=== PATIENT | female | born 1980 | race African-American/Black ===

== ENCOUNTER 2024-01-07 10:03 | Observation (INO) | payer OTHER ==
[2024-01-07 10:10] VITALS: RESP 18; BMI 39.7
[2024-01-07 11:31] LABS: BASO % 1.6 % (0-2.0); EOS % 1.7 % (0-4.5); HEMATOCRIT 24.2 % (32.4-45.2); HEMOGLOBIN 7.1 GM/dL (10.7-15.3); LYMPH % 14.1 % (8-40); MCH 15.2 pg (25.7-33.7); MCHC 29.4 g/dl (32.0-36.0); MEAN CELL VOLUME 51.7 fl (80-96); MEAN PLT VOLUME 8.5 fl (7.5-11.1); MONO % 8.3 % (3.8-10.2); NEUT % 74.3 % (42.8-82.8); PLATELET COUNT 394 10^3/uL (134-434); RBC 4.68 M/mm3 (3.60-5.2); RDW 21.4 % (11.6-15.6); WHITE BLOOD COUNT 6.7 K/mm3 (4.0-10.0)
[2024-01-07 11:44] LABS: INR 1.08 (0.83-1.09); PROTHROMBIN TIME (PATIENT) 12.2 SEC (9.7-13.0)
[2024-01-07 11:47] LABS: ACTIVATED PTT 29.8 SECONDS (25.2-36.5)
[2024-01-07 11:49] LABS: POTASSIUM 3.3 mmol/L (3.5-5.1)
[2024-01-07 11:51] LABS: CALCIUM 9.3 mg/dL (8.5-10.1)
[2024-01-07 11:52] LABS: ALBUMIN 3.5 g/dl (3.4-5.0); BLOOD UREA NITROGEN 11.9 mg/dL (7-18)
[2024-01-07 11:55] LABS: CREATININE 0.7 mg/dL (0.55-1.3)
[2024-01-07 11:56] LABS: TOT PROT 7.5 g/dl (6.4-8.2)
[2024-01-07 11:57] LABS: BILIRUBIN,TOTAL 0.3 mg/dL (0.2-1)
[2024-01-07] MEDS ORDERED: POTASSIUM CHLORIDE ORAL LIQUID 20 MEQ/15 ML ONE (12:25)
[2024-01-07] MEDS: POTASSIUM CHLORIDE ORAL LIQUID 20 MEQ/15 ML PO ONE (12:33)
[2024-01-07 12:40] LABS: ANISOCYTOSIS 3+; MACROCYTOSIS 0; PLATELET ESTIMATE ADEQUATE
[2024-01-07] MEDS ORDERED: ACETAMINOPHEN 325 MG TABLET (FP) PO PRN (13:27)
[2024-01-07 20:45] VITALS: BP 170/83; PULSE 82; TEMP 98.8
== END 2024-01-07 21:15 | disposition left against medical advice (07) ==
LOC: JER 10:03 → JERBED 12:15 → J6S 13:54
PROVIDERS: ADMIT Internal Medicine; ATTEND Internal Medicine
PROC: 30233N1 Transfusion of Nonautologous Red Blood Cells into Peripheral Vein, Percutaneous Approach (ICD-10-PCS; principal; 2024-01-07)
DX: D50.9 Iron deficiency anemia, unspecified (principal); E11.9 Type 2 diabetes mellitus without complications; I10 Essential (primary) hypertension; J45.909 Unspecified asthma, uncomplicated; Z90.49 Acquired absence of other specified parts of digestive tract
CPT/HCPCS: 36415; 36430; 80053; 82272; 82728; 83540; 83550; 84466; 85025; 85610; 85730; 86850; 86870; 86880; 86900; 86901; 86902; 86922; 93005; 93010; 99285-25; G0378; P9058